=== PATIENT | male | born 1975 | race Caucasian/White ===

== ENCOUNTER 2017-09-09 19:13 | Observation (INO) | payer SELFPAY ==
[2017-09-09] MEDS ORDERED: Sodium Chloride 0.9% 1,000 ML IV SCH (19:15)
[2017-09-09] MEDS ORDERED: Diphtheria,Pertussis(Acell),Tetanus Vaccine 0.5 ML SDV IM ONE (20:07)
[2017-09-09] MEDS ORDERED: ceFAZolin 1 GM in Sodium Chloride 0.9% 50 ML IV ONE (20:08)
[2017-09-09] MEDS ORDERED: ceFAZolin 1 GM Vial ONE (20:10)
[2017-09-09] MEDS ORDERED: Acetaminophen/HYDROcodone 325-5 MG Tab PO PRN ×2 (20:59)
[2017-09-09] MEDS ORDERED: Ondansetron 4 MG/2 ML SDV IVPUSH PRN (20:59)
[2017-09-09] MEDS ORDERED: ceFAZolin 1 GM in Sodium Chloride 0.9% 50 ML IV SCH (21:00)
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
[2017-09-10] MEDS ORDERED: ceFAZolin 1 GM Vial ONE ×2 (04:24→05:08)
[2017-09-10] MEDS ORDERED: ceFAZolin 1 GM in Sodium Chloride 0.9% 50 ML IV SCH (05:00)
[2017-09-10] MEDS ORDERED: Sodium Chloride 0.9% 20 ML SDV FLUSH PRN (05:19)
[2017-09-10] MEDS ORDERED: Sodium Chloride 0.9% 10 ML Syringe FLUSH PRN (05:31)
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
== END 2017-09-10 11:53 | disposition home or self-care (01) ==
LOC: FB.ED 19:13 → FB.MS 20:59
PROVIDERS: ADMIT Surgery; ATTEND Surgery
DX: S81.811A Laceration without foreign body, right lower leg, initial encounter (principal); S50.312A Abrasion of left elbow, initial encounter; F10.129 Alcohol abuse with intoxication, unspecified; Y90.0 Blood alcohol level of less than 20 mg/100 ml; V86.59XA Driver of other special all-terrain or other off-road motor vehicle injured in nontraffic accident, initial encounter
CPT/HCPCS: 36415; 70450; 71045; 72125; 72170; 72192; 73070; 73552; 80053; 82150; 82962; 85025; 85610; 85730; 86850; 86900; 86901; 90715; A9270; G0480; J0690; J7040; J7050; 12002; 73551-RT; 90471; 96361; 96374; 99285; G0390

== ENCOUNTER 2019-11-11 00:23 | Emergency (ER) | payer SELFPAY ==
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
[2019-11-11] MEDS: Amoxicillin/Clavulanate K 875-125 MG Tab PO ONE (02:20)
[2019-11-11] MEDS: Potassium Chloride 20 MEQ Tab.ER PO ONE (02:21)
== END 2019-11-11 02:58 | disposition home or self-care (01) ==
LOC: FB.ED 00:23
DX: S06.0X1A Concussion with loss of consciousness of 30 minutes or less, initial encounter (principal); S02.40FA Zygomatic fracture, left side, initial encounter for closed fracture; S02.40DA Maxillary fracture, left side, initial encounter for closed fracture; S01.112A Laceration without foreign body of left eyelid and periocular area, initial encounter; F10.129 Alcohol abuse with intoxication, unspecified; E87.6 Hypokalemia; R79.89 Other specified abnormal findings of blood chemistry; R03.0 Elevated blood-pressure reading, without diagnosis of hypertension; Z79.899 Other long term (current) drug therapy; W22.8XXA Striking against or struck by other objects, initial encounter
CPT/HCPCS: 36415; 70450; 72125; 80053; 80307; 83735; 85025; 99285; A9270